=== PATIENT | male | born 1995 | race Caucasian/White ===

== ENCOUNTER 2016-06-16 17:35 | Emergency (ER) | payer BC ==
[~2016-06-16 17:35] MED LIST: NORCO 325 MG-51 TA1 PO
== END 2016-06-16 18:33 | disposition home or self-care (01) ==
LOC: ED 17:35
DX: N34.2 Other urethritis (principal); F17.210 Nicotine dependence, cigarettes, uncomplicated
CPT/HCPCS: J0696

== ENCOUNTER 2016-10-29 17:17 | Emergency (ER) | payer SELFPAY ==
[~2016-10-29] VITALS: Ht 170.2 cm; Wt 72.7 kg
[2016-10-29 21:06] VITALS: BP 140/99
== END 2016-10-29 21:06 | disposition home or self-care (01) ==
LOC: ED 17:17
DX: K59.00 Constipation, unspecified (principal); M54.5 Low back pain

== ENCOUNTER → 2017-11-25 | Outpatient (CLI) | payer SELFPAY | LOC: RAD 15:53 | DX: M79.671 Pain in right foot (principal) ==

== ENCOUNTER 2021-04-07 18:56 | Emergency (ER) | payer SELFPAY ==
[~2021-04-07] VITALS: Ht 175.3 cm; Wt 75.0 kg
[2021-04-07] MEDS ORDERED: FLONASE ALLERG9.9 ML NS (20:26)
[2021-04-07] MEDS ORDERED: AUGMENTIN 875-1 EAC1 PO (20:26)
[2021-04-07 20:32] VITALS: BP 137/73
== END 2021-04-07 20:32 | disposition home or self-care (01) ==
LOC: ED 18:56
DX: J32.9 Chronic sinusitis, unspecified (principal); K59.00 Constipation, unspecified; F15.10 Other stimulant abuse, uncomplicated; N50.812 Left testicular pain; M54.50 Low back pain, unspecified; F17.210 Nicotine dependence, cigarettes, uncomplicated; Z20.822 Contact with and (suspected) exposure to COVID-19

== ENCOUNTER → 2023-03-05 | Outpatient (CLI) | payer SELFPAY ==
[~2023-03-05] MED LIST changes: +AUGMENTIN 875-1 EAC1 PO; +FLONASE ALLERG9.9 ML NS
[2023-03-05 13:47] LABS: URINE APPEARANCE CLEAR; URINE BILIRUBIN NEGATIVE (NEGATIVE); URINE BLOOD NEGATIVE (NEGATIVE); URINE COLOR YELLOW; URINE GLUCOSE NEGATIVE (NEGATIVE); URINE KETONE NEGATIVE (NEGATIVE); URINE LEUKOCYTE ESTERASE NEGATIVE (NEGATIVE); URINE MUCUS PRESENT (NOT PRESENT); URINE NITRATE NEGATIVE (NEGATIVE); URINE PROTEIN(semi-quant) TRACE (NEGATIVE); URINE UROBILINOGEN NORMAL (NORMAL); URINE WBC 0-1 /hpf (0-3)
== END ==
LOC: LAB 13:03
PROVIDERS: Physician Assistant
DX: R30.0 Dysuria (principal)

== ENCOUNTER → 2024-01-28 | Outpatient (CLI) | payer SELFPAY | LOC: LAB 18:51 | DX: Z20.2 Contact with and (suspected) exposure to infections with a predominantly sexual mode of transmission (principal) ==

== ENCOUNTER 2024-03-07 01:27 | Emergency (ER) | payer SELFPAY ==
[~2024-03-07] VITALS: Ht 175.3 cm; Wt 82.2 kg
[2024-03-07 01:59] LABS: PH-URINE 6.5 (5.0 - 8.0); URINE APPEARANCE CLEAR (CLEAR); URINE BILIRUBIN NEGATIVE (NEGATIVE); URINE BLOOD NEGATIVE (NEGATIVE); URINE COLOR YELLOW (YELLOW); URINE GLUCOSE NEGATIVE (NEGATIVE); URINE KETONE NEGATIVE (NEGATIVE); URINE LEUKOCYTE ESTERASE NEGATIVE (NEGATIVE); URINE NITRATE NEGATIVE (NEGATIVE); URINE PROTEIN(semi-quant) NEGATIVE (NEGATIVE); URINE WBC 0-1 /hpf (0-3)
[2024-03-07 02:08] VITALS: BP 172/114
== END 2024-03-07 02:11 | disposition home or self-care (01) ==
LOC: ED 01:27
PROVIDERS: Physician Assistant
DX: R35.0 Frequency of micturition (principal)